=== PATIENT | female | born 1955 | race Hispanic/Latino ===

== ENCOUNTER 2022-02-25 10:40 | Emergency (ER) | payer MEDICARE ==
[2022-02-25] VITALS (10 sets, daily range): BP systolic 108–132; BP diastolic 67–84
[~2022-02-25] VITALS: Ht 141 cm; Wt 54.0 kg
[~2022-02-25 10:40] MED LIST: FLUARIX QUADRIV1 INJ IM; FLUZONE SPLT1 M1 IM; LOTRIMIN AF21 EX; METFORMIN500 M2 PO; SIMVASTATIN20 MG PO; VENLAFAXINE75 M2 PO; ZOCOR20 MG PO
[2022-02-25] MEDS ORDERED: ASPIRIN81 MG PO (11:08)
[2022-02-25] MEDS ORDERED: LIPITOR40 M1 PO (11:09)
[2022-02-25] MEDS ORDERED: CETIRIZINE10 MG PO (11:09)
[2022-02-25] MEDS ORDERED: INVOKANA300 MG PO (11:09)
[2022-02-25] MEDS ORDERED: METFORMIN HCL1000 MG PO (11:10)
[2022-02-25] MEDS ORDERED: METHOCARBAMOL500 MG PO (11:11)
[2022-02-25] MEDS ORDERED: NAPROXEN EC500 MG PO (11:12)
[2022-02-25] MEDS ORDERED: VENLAFAXINE HCL75 M1 PO (11:12)
[2022-02-25] MEDS ORDERED: HYDROCO/APAP1 TA9 PO (12:14)
== END 2022-02-25 13:16 | disposition home or self-care (01) ==
LOC: ED 10:40
DX: S52.521A Torus fracture of lower end of right radius, initial encounter for closed fracture (principal); S52.611A Displaced fracture of right ulna styloid process, initial encounter for closed fracture; I10 Essential (primary) hypertension; E11.9 Type 2 diabetes mellitus without complications; W18.30XA Fall on same level, unspecified, initial encounter; Z79.84 Long term (current) use of oral hypoglycemic drugs